=== PATIENT | female | born 1945 | race Caucasian/White ===

== ENCOUNTER → 2018-07-20 | Outpatient (CLI) | payer MEDICARE, OTHER ==
[~2018-07-20] MED LIST: ALE70 PO; ASCO1CAP7 PO; ASPI-1471 PO; CALC1TAB32 PO; CHOL10005 PO; CHOL200022 PO; ERG400 PO; FESO8PT PO; FLU45SYR25 IM ONLY; GLUC-198 PO; IPRA4AER IH; MULT-1335 PO; MULT-19 PO; OXYGENHOME INH; PANT40TA65 PO; PER PO; PNEU0.5D3 IM; TOLT4CAP13 PO
== END ==
LOC: LAB 10:55
PROVIDERS: ATTEND Obstetrics & Gynecology
DX: N89.8 Other specified noninflammatory disorders of vagina (principal)
CPT/HCPCS: 87210

== ENCOUNTER → 2018-08-19 | Outpatient (CLI) | payer MEDICARE, OTHER ==
[~2018-08-19] MED LIST changes: -CHOL200022 PO; +CHOL200085 PO
--- NOTE | 2018-08-19 15:59 | RADIOLOGY IMAGING REPORT ---
FACILITY: [facility] - [place] PATIENT NAME: MARY ANNE ROJAS : [id number] MR: [id number] V: [id number] EXAM DATE: [id number] ORDERING PHYSICIAN: ABEL AVILA TECHNOLOGIST: Eliza Velasquez PROCEDURE:BILATERAL DIGITAL SCREENING MAMMOGRAM WITH CAD ASSISTED INTERPRETATION & 3D TOMOSYNTHESIS COMPARISON:Prior mammograms 01/16/15, 11/24/13. INDICATIONS:screening FINDINGS: A small amount of fibroglandular tissue is seen throughout the breasts. The parenchymal pattern has remained stable allowing for difference in mammographic technique & patient positioning. There is no evidence of malignant appearing mass, malignant appearing calcifications or other secondary sign of malignancy in either breast. DIAGNOSTIC CATEGORY 1--NEGATIVE. RECOMMENDATIONS: ROUTINE MAMMOGRAM AND CLINICAL EVALUATION. IMPRESSION: BIRADS 1: Negative. No significant abnormality is seen. Dictated by: Ximena Tavera M.D. on 08/19/2018 at 15:45 Transcribed by: MAURICE on 08/19/2018 at 15:50 Approved by: Ximena Tavera M.D. on 08/19/2018 at 15:58 [facility]
== END ==
LOC: MAMO 03:52
PROVIDERS: ATTEND Family Medicine
DX: Z12.31 Encounter for screening mammogram for malignant neoplasm of breast (principal)
CPT/HCPCS: 77063; 77067

== ENCOUNTER → 2018-09-20 | Outpatient (CLI) | payer MEDICARE, OTHER ==
[~2018-09-20] MED LIST changes: +MIRT7.5T2 PO
[2018-09-20 15:06] LABS: PLATELET COUNT, AUTOMATED 254 K/uL (150-450)
== END ==
LOC: LAB 18:36
PROVIDERS: ATTEND Family Medicine
DX: E83.52 Hypercalcemia (principal)
CPT/HCPCS: 36415; 82040; 82247; 82310; 82374; 82435; 82565; 82947; 83970; 84075; 84132; 84155; 84295; 84443; 84450; 84460; 84520; 85025

== ENCOUNTER → 2018-11-29 | Outpatient (CLI) | payer MEDICARE, OTHER ==
[~2018-11-29] MED LIST changes: +CHOL200022 PO; -CHOL200085 PO
== END ==
LOC: LAB 14:46
PROVIDERS: ATTEND Family Medicine
DX: E83.52 Hypercalcemia (principal)
CPT/HCPCS: 36415; 82306; 82330; 82542; 82652

== ENCOUNTER → 2018-12-08 | Outpatient (CLI) | payer MEDICARE, OTHER ==
--- NOTE | 2018-12-08 10:49 | RADIOLOGY IMAGING REPORT ---
FACILITY: [facility] PATIENT NAME: Colleen De Leon : 1945 MR: [id number] V: [id number] EXAM DATE: ORDERING PHYSICIAN: ABEL AVILA TECHNOLOGIST: Location: [facility] - [place] Patient: Colleen De Leon : 1945 Visit/Account:[id number] Date of Sevice: 12/08/2018 DEXA Scan Clinical history: Postmenopausal screening. Comparison: DEXA scan from to 1016. LUMBAR SPINE: The bone mineral density (BMD) measured from L1-L4 correlates with a Z-score of -0.6 and a T-score of -2.1 which is osteopenia as defined by the World Health Organization. The corresponding risk of fra cture in the lumbar spine is 4-6 times increased compared with a young adult reference population. T his value has decrease by 0.1 % since the prior study. More than 5% change is considered significant . HIP: Bone mineral density (BMD) measured in the LEFT total hip region correlates with a Z-score -0.2 and a T-score of -1.5 which is osteopenia as defined by the World Health Organization. The corresponding risk of fracture in the hip is 3 times increased compared to a young adult reference population. This value has decrease by -4.6 % since the prior study. More than 5% change is considered significant. T score left femoral neck -2.4 Bone mineral density (BMD) measured in the Femoral Neck region measures 0.707 g/cm?. IMPRESSION: 1. Lumbar spine: Osteopenia. There has been 0.1% decrease in the bone mineral density since the pre vious exam. 2. Left Total Hip: Osteopenia. There has been 4.6% decrease in the bone mineral density since the p revious exam. 3. Femoral Neck: Bone Mineral Density is 0.707 g/cm? The next DEXA scan of this patient should include the following sites: L1-L4 and the left hip. FRAX? WHO Fracture Risk Assessment Tool link: <http://www.shef.ac.uk/FRAX/tool.jsp?locationValue=9> PLEASE NOTE: 1) The World Health Organization defines low BMD as follows: T-score Normal > -1 Osteopenia < -1 and > -2.5 Osteoporosis < -2.5 without fractures Established osteoporosis < -2.5 with fractures 2) In general, you may wish to consider: Diagnosis Treatment Follow-up DEXA Normal BMD Prevention 2-3 years Osteopenia Prevention/therapy 1-2 years Osteoporosis Therapy Yearly 3) Fracture risk estimated from the T-score is more accurate for vertebral fractures (often spontane ous) than for hip fractures. Report Dictated By: Ximena Tavera MD at 12/08/2018 10:43 AM Report E-Signed By: Ximena Tavera MD at 12/08/2018 10:44 AM WSN:[email or web address]
== END ==
LOC: RAD 07:07
PROVIDERS: ATTEND Family Medicine
DX: Z13.820 Encounter for screening for osteoporosis (principal); M85.89 Other specified disorders of bone density and structure, multiple sites
CPT/HCPCS: 77080

== ENCOUNTER → 2019-01-05 | Outpatient (CLI) | payer MEDICARE, OTHER | LOC: LAB 13:12 | PROVIDERS: ATTEND Family Medicine | DX: E83.52 Hypercalcemia (principal) | CPT/HCPCS: 36415; 82040; 82247; 82310; 82374; 82435; 82565; 82947; 84075; 84132; 84155; 84295; 84450; 84460; 84520 ==

== ENCOUNTER → 2019-03-07 | Outpatient (CLI) | payer MEDICARE, OTHER ==
[~2019-03-07] MED LIST changes: +CYAN25004; +TRIA80OI13 TP
== END ==
LOC: LAB 14:53
PROVIDERS: ATTEND Family Medicine
DX: E83.52 Hypercalcemia (principal)
CPT/HCPCS: 36415; 82310; 82374; 82435; 82565; 82947; 84132; 84295; 84520